=== PATIENT | female | born 1960 | race Caucasian/White ===

== ENCOUNTER 2018-07-17 18:23 | Emergency (ER) | payer OTHER, SELFPAY ==
[2018-07-17 18:40] VITALS: BP 123/68; PULSE 87; RESP 18; TEMP 36.5; O2SAT 100; BMI 25.3
--- NOTE | 2018-07-17 18:48 | ED_ITS ---
HPI - Abdominal Pain General Chief Complaint: Abdominal Pain Stated Complaint: Kidney pain, Dark foamy urine Time Seen by Provider: 07/17/18 18:48 Source: patient Mode of arrival: ambulatory Limitations: no limitations History of Present Illness HPI narrative: Patient is a 58-year-old female here for evaluation of right- sided flank pain and dark ?frothy ?urine. She states that she has been taking some of her friends pain medication for the pain. She also states she took about a day of an antibiotic that she also got from a friend. She states that she is having some dysuria. Related Data Previous Rx's Medication Instructions Recorded nitrofurantoin monohyd/m-cryst 100 mg PO BID 5 Days #10 cap 07/17/18 [Macrobid] Allergies Allergy/AdvReac Type Severity Reaction Status Date / Time acetaminophen [From Vicodin] AdvReac Verified 07/17/18 18:51 ciprofloxacin AdvReac Verified 07/17/18 18:51 codeine AdvReac Verified 07/17/18 18:51 doxycycline AdvReac Verified 07/17/18 18:51 fentanyl AdvReac Verified 07/17/18 18:51 hydrocodone [From Vicodin] AdvReac Verified 07/17/18 18:51 metronidazole [From Flagyl] AdvReac Verified 07/17/18 18:51 morphine AdvReac Verified 07/17/18 18:51 Penicillins AdvReac Verified 07/17/18 18:51 tramadol AdvReac Verified 07/17/18 18:51 Review of Systems Constitutional Denies fever(s) and Denies headache(s) ENT Ears, Nose, Mouth, and Throat: Denies headache(s) Cardiovascular Denies chest pain and Denies dyspnea Respiratory Denies dyspnea Gastrointestinal Gastrointestinal: Reports abdominal pain, Denies nausea and Denies vomiting Genitourinary Reports dysuria and Denies pelvic pain Comments: Dark colored urine Musculoskeletal Denies myalgias and Denies arthralgias Integumentary/Breasts Denies rash Neurologic Denies headache(s) Hematologic/Lymphatic Denies easy bleeding and Denies easy bruising [facility] Medical History Urinary tract infection (Acute) Social History Smoking Status: Current every day smoker Social History Smoking Status: Current every day smoker Exam Initial Vital Signs Initial Vital Signs: Vital Signs Temperature 97.7 F 07/17/18 18:40 Pulse Rate 87 07/17/18 18:40 Respiratory Rate 18 07/17/18 18:40 Blood Pressure 123/68 07/17/18 18:40 Pulse Oximetry 100 07/17/18 18:40 Const General: cooperative, comfortable, well developed, well groomed and No acute distress Orientation: alert, awake and oriented x3 Resp Effort & Inspection: normal respiratory effort Auscultation: clear to auscultation bilaterally Cardio Rate: regular rate Rhythm: regular rhythm GI Inspection: non-distended Palpation: No firm and tender (Right-sided abdominal tenderness) Back/Spine/Pelvis Back: CVA tenderness right Skin Lesions: no lesions Rashes: no rashes Neuro General: alert, awake and oriented x3 Cognition: normal cognition Speech: speech normal Extrem General: normal to inspection and capillary refill normal Psych Appearance: grossly normal and well kempt Course Orders Ordered: ED Orders 07/17/18 19:00 CT abdomen pelvis w con Stat Urine Microscopic Stat 07/17/18 19:15 Complete Blood Count AUTO DIFF Stat Comprehensive Metabolic Panel Stat Lipase Stat Discontinued Medications Diphenhydramine HCl (Benadryl) 25 mg IV NOW ONE Stop: 07/17/18 20:06 Last Admin: 07/17/18 19:50 Dose: 25 mg Sodium Chloride (Normal Saline 0.9%) 1,000 mls @ 1,000 mls/hr IV BOLUS ONE Stop: 07/17/18 19:59 Last Infusion: 07/17/18 20:29 Dose: 0 mls/hr Admin: 07/17/18 19:19 Dose: 1,000 mls/hr Ketorolac Tromethamine (Toradol) 30 mg IV NOW ONE Stop: 07/17/18 19:20 Last Admin: 07/17/18 19:25 Dose: 30 mg Ondansetron HCl (Zofran) 4 mg IV NOW ONE Stop: 07/17/18 19:19 Last Admin: 07/17/18 19:25 Dose: 4 mg Vital Signs - 8 hr 07/17/18 20:28 Pulse Rate 79 Respiratory Rate 17 Blood Pressure [Left Arm] 112/62 Pulse Oximetry 96 MDM - Abdominal Pain Lab Data Attestation: I reviewed the patient's lab results. Result diagrams: 07/17/18 19:15 07/17/18 19:15 Lab Results 07/17/18 07/17/18 07/17/18 Range/Units 19:00 19:15 19:15 WBC 7.8 (4.5-11.0) X10^3/uL RBC 4.46 (4.0-5.2) X10^6/uL Hgb 13.8 (12.0-16.0) g/dL Hct 41.0 (36-46) % MCV 91.9 (80-100) fL MCH 31.0 (26-34) PG MCHC 33.7 (30-36) % RDW 13.2 (11.6-14.8) % Plt Count 237 (150-400) X10^3/uL Neut % (Auto) 56.4 (50-75) % Lymph % (Auto) 36.5 (25-40) % Fleming % (Auto) 5.6 (3-14) % Eos % (Auto) 0.9 L (2-4) % Baso % (Auto) 0.6 (0-2) % Neut # (Auto) 4400 (4407-4902) /uL Lymph # (Auto) 2800 (7663-5912) /uL Fleming # (Auto) 400 (0-900) /uL Eos # (Auto) 100 (0-450) /uL Baso # (Auto) 0 (0-100) /uL Sodium 136 L (137-145) mmol/L Potassium 4.0 (3.4-5.1) mmol/L Chloride 103 (98-107) mmol/L Carbon Dioxide 25 (22-32) mmol/L BUN 14 (7-17) mg/dL Creatinine 0.80 (0.52-1.04) mg/dL Estimated GFR > 60.0 (>60) mL/min BUN/Creatinine Ratio 17.5 (6-22) Glucose 93 (70-100) mg/dL Calcium 9.0 (8.4-10.2) mg/dL Total Bilirubin 0.3 (0.2-1.3) mg/dL AST 22 (14-36) IU/L ALT 11 (9-52) IU/L Alkaline Phosphatase 125 (38-126) U/L Total Protein 7.6 (6.3-8.2) g/dL Albumin 4.4 (3.5-5.0) g/dL Globulin 3.2 (1.7-4.1) g/dL Albumin/Globulin Ratio 1.4 (1.0-2.8) Lipase 188 (23-300) U/L Urine RBC 0-1/hpf (0-5/HPF) Urine WBC 0-1/hpf (0-5/HPF) Ur Squamous Epith Cells 5-10 /hpf H (0-5/HPF) Urine Bacteria Many (>30) H (None) Urine Mucus 3+ H (Negative) Ur Culture Indicated? Cult not indicated Point of care testing: Urine Dip Bedside Urine Glucose Negative Bedside Urine Bilirubin - Negative Bedside Urine Ketone - Negative Urine Specific [place] 1.030 Bedside Urine Occult Blood +/- Bedside Urine pH 5.0 Bedside Urine Protein +/- 15 Bedside Urine Urobilinogen +/- 1mg Bedside Urine Nitrite - Negative Bedside Urine Leukocytes - Negative Esterase Imaging Data CT scan - abdomen: Radiologist's impression: [place] [address] CT Scan Report Signed Patient: Cathie Mcguire#: [id number] : 2Acct:[id number] Age/Sex: 58 / FDate of Service: 07/17/18 Loc: ED Accession Number: [id number] Procedure: CT abdomen pelvis w con Ordering Provider: Florian Lenz D.O. PROCEDURE: CT ABDOMEN PELVIS W CON INDICATIONS: Right sided abdominal pain TECHNIQUE: After the administration of intravenous contrast, 5 mm thick sections acquired from the diaphragm to the symphysis. 5 mm coronal and sagittal reformats were acquired. For radiation dose reduction, the following was used: automated exposure control, adjustment of mA and/or kV according to patient size. COMPARISON: None. FINDINGS: Image quality: Excellent. ABDOMEN: Lung bases: 9 mm in maximum diameter solid subpleural nodule noted in the right lung base. 4 mm maximum diameter subsolid subpleural nodule noted in the left lung base. Heart size is normal. Solid organs: Liver is normal in size and enhancement. Mild, diffuse fatty infiltration of the liver. Gallbladder is surgically absent. Biliary system is non dilated. Pancreas enhances normally. Spleen is normal in size and enhancement. No adrenal nodules. Kidneys demonstrate normal size and enhancement, without hydronephrosis. 3 mm nonobstructing stone in the midpole of the left kidney. Peritoneum and bowel: Bowel loops demonstrate normal wall thickness and caliber. Scattered diverticuli noted in the colon without evidence of diverticulitis. No free fluid or air. The appendix is not definitely visualized, however no inflammatory changes or free fluid or an atypical adjacent to the cecum. Nodes and vessels: No retroperitoneal or mesenteric adenopathy by size criteria. Aorta and inferior vena cava are normal in size. Scattered atherosclerotic calcifications are noted in the abdominal and pelvic vasculature. Miscellaneous: Small fat containing umbilical hernia. PELVIS: Genitourinary: Bladder wall thickness is normal. Miscellaneous: No inguinal hernias or adenopathy. Bones: No suspicious bony lesions. No vertebral body compression fractures. Spine degenerative disease and facet arthropathy noted. Status post L5-S1 fusion. IMPRESSION: 1. No acute disease process. 2. No free fluid or free air. 3. No dilated loops of bowel. 4. 3 mm nonobstructing left renal stone. No hydronephrosis. 5. Colonic diverticulosis without evidence of diverticulitis. 6. 9 mm subpleural solid nodule in the right lung base and 4 mm subpleural, s ub-solid nodule in the left lung base. Recommend followup CT scan of the chest in 3 months based on criteria outlined below. Fleischner Society criteria for SOLID lung nodule followup. Nodule size (mm)Low-risk patientHigh-risk patient?4No follow-up neededFollow-up at 12 mo; if no change, no further follow-up>[id number]-gc CT at 12 mo; if no change, no further follow-up needed.Initial follow-up CT at 6-12 mo, then 18-24 mo if no change. >6-8Initial follow-up CT at 6-12 mo, then 18-24 mo if no change. Initial follow- up CT at 3-6 mo, then 9-12 mo and 24 mo if no change. >8Follow-up CT at 3, 9, 24 mo. Or PET and/or biopsy.Same as for low-risk pts. Fleischner Society criteria for SUB-SOLID lung nodule followup. Solitary pure ground-glass nodules5 mm or lessNo followup needed. >5 mm3 mo follow-up CT to confirm persistence. Then annual CT for 3 years. Part-solid nodules3 mo follow-up CT to confirm persistence. If persistent with solid component <5 mm, annual CT for at least 3 years. If solid component is 5 mm or more, biopsy or surgical resection. Consider PET-CT for lesions > 10 mm. Multiple sub-solid nodulesPure ground glass nodules [address] at 2 and 4 years. Pure ground glass nodules >5 mm without dominant lesion. [address] to confirm persistence, then annual followup CT for at least 3 years. Dominant nodule(s) with part-solid or solid component. [address] to confirm persistence. If persistent, consider biopsy or surgical resection, fany if lesions have >5 mm solid component. Dictated by: Shelbie Wright MD, PhD on 07/17/2018 at 20:09 Approved by: Shelbie Wright MD, PhD on 07/17/2018 at 20:14 [facility] Narrative Medical decision making narrative: Patient's urinalysis showed bacteria but also had epi cells and no white blood cells. This is not convincing this was a urinary tract infection. She was afebrile. CT scan was ordered because of this which showed no acute pathology. Did show lung nodules. When I discussed this with the patient she stated that she knew about these lung nodules. She was informed that she needed to follow up with her primary doctor regarding them. She was given a CD that had the pictures of her CT scan on it. Her symptoms are somewhat consistent with a urinary tract infection however urinalysis is not. She was given a prescription for Macrobid however I informed her to wait for the next couple days to see if her symptoms did not improve. This was done because she has been on antibiotics for about a day prior to this and potentially this as sterilize her urine and not showing up as a infection. I do not feel like she has pyelonephritis. Patient was given follow-up instructions return precautions. She expressed understanding and agreement plan Discharge Plan Departure Patient Disposition: Home Clinical Impression: Abdominal pain Qualifiers: Abdominal location: unspecified location Qualified Code(s): R10.9 - Unspecified abdominal pain Discharge Date/Time: 07/17/18 20:44 Interventions: ED Discharge Assessment Last Done: 07/17/18 20:44 Instructions: DI for Abdominal Pain-Adult Activity Restrictions/Additional Instructions: The prescription for the antibiotics is to treat a urinary tract infection. Like we discussed I would hold on filling this for the next couple days and if your symptoms worsen or you develop more urinary symptoms then fill it and start taking it as directed. When you return home contact your primary care doctor for follow-up. Return to the emergency department for any new or worsening symptoms Prescriptions: New nitrofurantoin monohyd/m-cryst [Macrobid] 100 mg capsule 100 mg PO BID 5 Days Qty: 10 RF: 0
--- NOTE | 2018-07-17 19:00 | DI.CT.S_ITS ---
PROCEDURE: CT ABDOMEN PELVIS W CON INDICATIONS: Right sided abdominal pain TECHNIQUE: After the administration of intravenous contrast, 5 mm thick sections acquired from the diaphragm to the symphysis. 5 mm coronal and sagittal reformats were acquired. For radiation dose reduction, the following was used: automated exposure control, adjustment of mA and/or kV according to patient size. COMPARISON: None. FINDINGS: Image quality: Excellent. ABDOMEN: Lung bases: 9 mm in maximum diameter solid subpleural nodule noted in the right lung base. 4 mm maximum diameter subsolid subpleural nodule noted in the left lung base. Heart size is normal. Solid organs: Liver is normal in size and enhancement. Mild, diffuse fatty infiltration of the liver. Gallbladder is surgically absent. Biliary system is non dilated. Pancreas enhances normally. Spleen is normal in size and enhancement. No adrenal nodules. Kidneys demonstrate normal size and enhancement, without hydronephrosis. 3 mm nonobstructing stone in the midpole of the left kidney. Peritoneum and bowel: Bowel loops demonstrate normal wall thickness and caliber. Scattered diverticuli noted in the colon without evidence of diverticulitis. No free fluid or air. The appendix is not definitely visualized, however no inflammatory changes or free fluid or an atypical adjacent to the cecum. Nodes and vessels: No retroperitoneal or mesenteric adenopathy by size criteria. Aorta and inferior vena cava are normal in size. Scattered atherosclerotic calcifications are noted in the abdominal and pelvic vasculature. Miscellaneous: Small fat containing umbilical hernia. PELVIS: Genitourinary: Bladder wall thickness is normal. Miscellaneous: No inguinal hernias or adenopathy. Bones: No suspicious bony lesions. No vertebral body compression fractures. Spine degenerative disease and facet arthropathy noted. Status post L5-S1 fusion. IMPRESSION: 1. No acute disease process. 2. No free fluid or free air. 3. No dilated loops of bowel. 4. 3 mm nonobstructing left renal stone. No hydronephrosis. 5. Colonic diverticulosis without evidence of diverticulitis. 6. 9 mm subpleural solid nodule in the right lung base and 4 mm subpleural, sub-solid nodule in the left lung base. Recommend followup CT scan of the chest in 3 months based on criteria outlined below. Fleischner Society criteria for SOLID lung nodule followup. Nodule size (mm)Low-risk patientHigh-risk patient?4No follow-up neededFollow-up at 12 mo; if no change, no further follow-up>8-5Vimlrl-um CT at 12 mo; if no change, no further follow-up needed.Initial follow-up CT at 6-12 mo, then 18-24 mo if no change. >6-8Initial follow-up CT at 6-12 mo, then 18-24 mo if no change. Initial follow-up CT at 3-6 mo, then 9-12 mo and 24 mo if no change. >8Follow-up CT at 3, 9, 24 mo. Or PET and/or biopsy.Same as for low-risk pts. Fleischner Society criteria for SUB-SOLID lung nodule followup. Solitary pure ground-glass nodules5 mm or lessNo followup needed. >5 mm3 mo follow-up CT to confirm persistence. Then annual CT for 3 years. Part-solid nodules3 mo follow-up CT to confirm persistence. If persistent with solid component <5 mm, annual CT for at least 3 years. If solid component is 5 mm or more, biopsy or surgical resection. Consider PET-CT for lesions > 10 mm. Multiple sub-solid nodulesPure ground glass nodules [address] at 2 and 4 years. Pure ground glass nodules >5 mm without dominant lesion. [address] to confirm persistence, then annual followup CT for at least 3 years. Dominant nodule(s) with part-solid or solid component. [address] to confirm persistence. If persistent, consider biopsy or surgical resection, fany if lesions have >5 mm solid component. Dictated by: Shelbie Wright MD, PhD on 07/17/2018 at 20:09 Approved by: Shelbie Wright MD, PhD on 07/17/2018 at 20:14
[2018-07-17 19:06] LABS: Bacteria Urine Many (>30); Culture Indicated Urine Cult Not Indicated; Mucus Urine 3+ (Negative); RBC Urine 0-1/HPF (0-5/HPF); Squamous Epithelial Cell Urine 5-10 /HPF (0-5/HPF); WBC Urine 0-1/HPF (0-5/HPF)
[2018-07-17] MEDS: SODIUM CHLORIDE 0.9% 1,000 ML 1000 ML IV (19:19)
[2018-07-17] MEDS: ONDANSETRON 4 MG/2 ML INJ IV (19:25)
[2018-07-17] MEDS: KETOROLAC 60 MG/2 ML VIAL 30 MG IV (19:25)
[2018-07-17 19:26] LABS: Add Manual Diff / Slide Review NO; Basophils Absolute Auto 0 /uL (0-100); Basophils Percent Auto 0.6 % (0-2); Eosinophils Absolute Auto 100 /uL (0-450); Eosinophils Percent Auto 0.9 % (2-4); Hemoglobin 13.8 g/dL (12.0-16.0); Lymphocytes Absolute Auto 2800 /uL (1100-4500); Lymphocytes Percent Auto 36.5 % (25-40); Mean Corpuscular HGB Conc 33.7 % (30-36); Mean Corpuscular Volume 91.9 fL (80-100); Monocytes Absolute Auto 400 /uL (0-900); Monocytes Percent Auto 5.6 % (3-14); Neutrophils Absolute Auto 4400 /uL (1500-7000); Neutrophils Percent Auto 56.4 % (50-75); Platelet Count 237 X10^3/uL (150-400); Red Blood Cell Count 4.46 X10^6/uL (4.0-5.2); Red Cell Distribution Width 13.2 % (11.6-14.8); White Blood Cell Count 7.8 X10^3/uL (4.5-11.0)
[2018-07-17 19:35] LABS: Alanine Aminotransferase 11 IU/L (9-52); Albumin 4.4 g/dL (3.5-5.0); Albumin Globulin Ratio 1.4 (1.0-2.8); Alkaline Phosphatase 125 U/L (38-126); Aspartate Aminotransferase 22 IU/L (14-36); BUN Creatinine Ratio 17.5 (6-22); Bilirubin Total 0.3 mg/dL (0.2-1.3); Blood Urea Nitrogen 14 mg/dL (7-17); Carbon Dioxide 25 mmol/L (22-32); Chloride 103 mmol/L (98-107); Estimated Glomerular Filt Rate > 60.0 mL/min (>60); Globulin 3.2 g/dL (1.7-4.1); Glucose 93 mg/dL (70-100); HEMOLYSIS < 15 (0-50); Lipase 188 U/L (23-300); Sodium 136 mmol/L (137-145); Total Protein 7.6 g/dL (6.3-8.2)
[2018-07-17] MEDS: diphenhydrAMINE 50 MG/ML VIAL 25 MG IV (19:50)
[2018-07-17 19:54] VITALS: BP 117/74; PULSE 80; RESP 14; O2SAT 100
--- NOTE | 2018-07-17 19:55 | PC.NURSE ---
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 I think i am having a reaction Denies SOB, speaking in full sentences. No hives noted. Scratch mcgill to arms, legs and back. Provider aware and verbal order for IV 25mg Benadryl.
[2018-07-17 20:28] VITALS: BP 112/62; PULSE 79; RESP 17; O2SAT 96
== END 2018-07-17 20:44 | disposition home or self-care (01) ==
PROVIDERS: Emergency Provider Emergency Medicine
DX: R10.9 Unspecified abdominal pain (principal); R30.0 Dysuria
CPT/HCPCS: 36591; 74177; 80053; 81003; 81015; 83690; 85025; 96361; 96374; 96375; 99283; 99284; J1200; J1885; J2405; Q9967